=== PATIENT | female | born 1985 ===

== ENCOUNTER 2017-03-18 01:19 | Emergency (ER) | payer MEDICAID ==
[2017-03-18 01:30] VITALS: BP 141/82; PULSE 79; RESP 16; TEMP 98; O2SAT 99
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
== END 2017-03-18 05:39 | disposition home or self-care (01) ==
LOC: H.ER 01:19
DX: F41.9 Anxiety disorder, unspecified (principal); F32.9 Major depressive disorder, single episode, unspecified